=== PATIENT | female | born 1970 | race Caucasian/White ===

== ENCOUNTER 2018-12-28 06:29 | Day surgery (SDC) | payer OTHER ==
[~2018-12-28 06:29] MED LIST: EFFEXOR XR150 MG PO; SYNTHROID137 MCG PO; [UNRECOGNIZED DRUG - OTHER] PO
== END 2018-12-28 13:25 | disposition home or self-care (01) ==
LOC: CIR.AMB 06:29
DX: G56.01 Carpal tunnel syndrome, right upper limb (principal); M65.331 Trigger finger, right middle finger